=== PATIENT | female | born 1980 | race Two or more races ===

== ENCOUNTER → 2018-05-01 07:42 | Outpatient (CLI) | payer OTHER | END | disposition home or self-care (01) | LOC: LAB 07:42 | DX: Z13.0 Encounter for screening for diseases of the blood and blood-forming organs and certain disorders involving the immune mechanism (principal); N39.0 Urinary tract infection, site not specified; E78.00 Pure hypercholesterolemia, unspecified; E03.1 Congenital hypothyroidism without goiter; E55.9 Vitamin D deficiency, unspecified ==

== ENCOUNTER 2018-05-01 08:07 | Outpatient (CLI) | payer OTHER | END 2018-05-01 08:16 | disposition home or self-care (01) | LOC: SONOGRAMA 08:07 | DX: N93.8 Other specified abnormal uterine and vaginal bleeding (principal) ==

== ENCOUNTER 2018-10-26 10:56 | Emergency (ER) | payer OTHER ==
[~2018-10-26] VITALS: Ht 165.1 cm; Wt 61.2 kg
== END 2018-10-26 14:54 | disposition home or self-care (01) ==
LOC: ER 10:56
DX: J32.8 Other chronic sinusitis (principal)

== ENCOUNTER 2019-03-24 06:51 | Outpatient (CLI) | payer OTHER | END 2019-03-24 06:52 | disposition home or self-care (01) | LOC: LAB 06:51 | DX: E78.49 Other hyperlipidemia (principal); E03.8 Other specified hypothyroidism; D46.4 Refractory anemia, unspecified; R80.2 Orthostatic proteinuria, unspecified ==

== ENCOUNTER 2019-10-19 08:45 | Outpatient (CLI) | payer OTHER ==
[~2019-10-19] VITALS: Ht 157.5 cm; Wt 60.3 kg
[2019-10-19] MEDS ORDERED: SINGULAIR10 MG PO (10:29)
[2019-10-19] MEDS ORDERED: FLONASE16 GM NASAL (10:29)
[2019-10-19] MEDS ORDERED: PRILOSEC OTC20 MG PO (10:30)
[2019-10-19] MEDS ORDERED: PEPCID AC20 MG PO (10:30)
== END 2019-10-19 10:56 | disposition home or self-care (01) ==
LOC: OFIC 805 08:45
DX: J34.2 Deviated nasal septum (principal); R09.82 Postnasal drip; K21.9 Gastro-esophageal reflux disease without esophagitis; J30.89 Other allergic rhinitis; J32.8 Other chronic sinusitis

== ENCOUNTER 2020-02-08 06:58 | Outpatient (CLI) | payer OTHER ==
[~2020-02-08 06:58] MED LIST: FLONASE16 GM NASAL; PEPCID AC20 MG PO; PRILOSEC OTC20 MG PO; SINGULAIR10 MG PO
== END 2020-02-08 07:10 | disposition home or self-care (01) ==
LOC: LAB 06:58
DX: E03.8 Other specified hypothyroidism (principal); I10 Essential (primary) hypertension; Z12.11 Encounter for screening for malignant neoplasm of colon; Z11.4 Encounter for screening for human immunodeficiency virus [HIV]; E55.9 Vitamin D deficiency, unspecified

== ENCOUNTER 2020-02-08 07:39 | Outpatient (CLI) | payer OTHER | END 2020-02-08 07:48 | disposition home or self-care (01) | LOC: MAMO-SONO 07:39 | PROVIDERS: ATTEND Obstetrics & Gynecology | DX: Z12.31 Encounter for screening mammogram for malignant neoplasm of breast (principal) ==

== ENCOUNTER 2020-02-09 06:41 | Outpatient (CLI) | payer OTHER | END 2020-02-09 06:45 | disposition home or self-care (01) | LOC: LAB 06:41 | PROVIDERS: ATTEND Obstetrics & Gynecology | DX: E03.8 Other specified hypothyroidism (principal); I10 Essential (primary) hypertension; Z12.11 Encounter for screening for malignant neoplasm of colon; E55.9 Vitamin D deficiency, unspecified ==

== ENCOUNTER 2020-05-09 13:07 | Outpatient (CLI) | payer OTHER | END 2020-05-09 15:00 | disposition home or self-care (01) | LOC: PPH VACUNA 13:07 | DX: Z23 Encounter for immunization (principal) ==

== ENCOUNTER 2020-08-04 06:30 | Outpatient (CLI) | payer OTHER | END 2020-08-04 06:37 | disposition home or self-care (01) | LOC: LAB 06:30 | DX: Z20.828 Contact with and (suspected) exposure to other viral communicable diseases (principal); E78.49 Other hyperlipidemia; E83.89 Other disorders of mineral metabolism ==

== ENCOUNTER → 2020-11-17 | Outpatient (CLI) | payer OTHER ==
[~2020-11-17] MED LIST changes: +ATORVASTATIN CA20 MG PO; +D3 + K2 DOTS 11 EACH PO; +ZYRTEC10 MG PO
== END | disposition home or self-care (01) ==
LOC: SONOGRAMA 07:12
PROVIDERS: ATTEND Surgery
DX: N60.11 Diffuse cystic mastopathy of right breast (principal); N60.12 Diffuse cystic mastopathy of left breast

== ENCOUNTER 2021-01-19 06:19 | Day surgery (SDC) | payer OTHER | END 2021-01-19 12:15 | disposition home or self-care (01) | LOC: CIR.AMB 06:19 | PROVIDERS: ATTEND Surgery | DX: D24.2 Benign neoplasm of left breast (principal); Z20.822 Contact with and (suspected) exposure to COVID-19 ==

== ENCOUNTER 2021-02-22 08:00 | Outpatient (CLI) | payer OTHER | END 2021-02-22 08:30 | disposition home or self-care (01) | LOC: PPH VACUNA 08:00 | PROVIDERS: ATTEND Emergency Medicine Pediatric Emergency Medicine | DX: Z23 Encounter for immunization (principal) ==

== ENCOUNTER 2021-08-10 06:47 | Outpatient (CLI) | payer OTHER | END 2021-08-10 09:23 | disposition home or self-care (01) | LOC: LAB 06:47 | PROVIDERS: ATTEND Internal Medicine Pulmonary Disease | DX: J30.1 Allergic rhinitis due to pollen (principal); J45.30 Mild persistent asthma, uncomplicated; D64.9 Anemia, unspecified; E83.9 Disorder of mineral metabolism, unspecified; E78.5 Hyperlipidemia, unspecified; E03.9 Hypothyroidism, unspecified; E55.9 Vitamin D deficiency, unspecified; R80.9 Proteinuria, unspecified; E11.65 Type 2 diabetes mellitus with hyperglycemia ==

== ENCOUNTER 2021-09-25 14:02 | Outpatient (CLI) | payer OTHER | END 2021-09-25 14:20 | disposition home or self-care (01) | LOC: MAMO-SONO 14:02 | PROVIDERS: ATTEND Obstetrics & Gynecology | DX: Z12.31 Encounter for screening mammogram for malignant neoplasm of breast (principal); N64.4 Mastodynia ==

== ENCOUNTER 2022-07-31 07:24 | Outpatient (CLI) | payer OTHER | END 2022-07-31 07:25 | disposition home or self-care (01) | LOC: LAB 07:24 | PROVIDERS: ATTEND Obstetrics & Gynecology | DX: E03.4 Atrophy of thyroid (acquired) (principal); I10 Essential (primary) hypertension; E55.9 Vitamin D deficiency, unspecified; N92.6 Irregular menstruation, unspecified; N91.1 Secondary amenorrhea ==

== ENCOUNTER 2022-08-06 08:31 | Outpatient (CLI) | payer OTHER | END 2022-08-06 09:00 | disposition home or self-care (01) | LOC: SONOGRAMA 08:31 | PROVIDERS: ATTEND Obstetrics & Gynecology | DX: R10.2 Pelvic and perineal pain (principal); N92.6 Irregular menstruation, unspecified ==

== ENCOUNTER 2022-10-04 11:33 | Outpatient (CLI) | payer OTHER | END 2022-10-04 14:12 | disposition home or self-care (01) | LOC: RAD 11:33 | PROVIDERS: ATTEND Obstetrics & Gynecology | DX: Z12.31 Encounter for screening mammogram for malignant neoplasm of breast (principal); N64.2 Atrophy of breast ==

== ENCOUNTER → 2023-02-07 06:22 | Outpatient (CLI) | payer OTHER | END | disposition home or self-care (01) | LOC: LAB 06:22 | PROVIDERS: ATTEND Internal Medicine Geriatric Medicine | DX: D50.9 Iron deficiency anemia, unspecified (principal); E03.9 Hypothyroidism, unspecified; E78.2 Mixed hyperlipidemia; I11.9 Hypertensive heart disease without heart failure; E56.8 Deficiency of other vitamins; N39.0 Urinary tract infection, site not specified; Z12.11 Encounter for screening for malignant neoplasm of colon; R19.5 Other fecal abnormalities; E55.9 Vitamin D deficiency, unspecified; N19 Unspecified kidney failure; E11.9 Type 2 diabetes mellitus without complications ==